=== PATIENT | male | born 1970 | race Caucasian/White ===

== ENCOUNTER 2018-09-25 15:04 | Inpatient (IN) | payer BC ==
[~2018-09-25] VITALS: Ht 188 cm; Wt 108.4 kg
[2018-09-25 15:11] VITALS: Ht 188 cm; Wt 108.4 kg
--- NOTE | 2018-09-25 17:49 | NUR ---
PT BIB SELF, PLACED ON FULL CM, INSTRUCTED TO PROVIDE CLEAN CATCH URINE SPECIMEN VERBALIZED UNDERSTANDING. NAD NOTED, SPEECH IS CLEAR, CALL LIGHT WITHIN REACH.
--- NOTE | 2018-09-25 19:00 | NUR ---
PATIENT AAOX4- PRESENTS TO THE ED WITH C/0 ABDOMINAL PAIN X 5 DAYS. PATIENT STATES HE HAS BEEN CONSTIPATED BUT TODAY HAD EPISODES OF WATERY STOOLS. PATIENT BREATHING IS EVEN AND UNLABORED, ABD SOFT, NON DISTENDED, NON TENDER. BS X 4 QUADS. NO OTHER S/S OF DISTRESS NOTED. PLACED ON ALL MONITORS FOR FURTHER OBSERVATON.
[2018-09-25 19:07] LABS: CALCIUM 8.7 mg/dL (8.5-10.1); CARBON DIOXIDE 29.6 mmol/L (21-32); CHLORIDE SERUM 99 mmol/L (98-107); CREATININE SERUM 1.2 mg/dL (0.7-1.3); GFR1 > 60 mL/min; GLUCOSE SERUM 96 mg/dL (74-106); POTASSIUM SERUM 4.2 mmol/L (3.5-5.1); SODIUM SERUM 135 mmol/L (136-145)
[2018-09-25 19:09] LABS: BASOPHIL % 0.2 % (0-2); PLATELET COUNT 248 x10^3mcL (130-400); RED CELL DISTRIBUTION WIDTH 12.8 % (11.5-14.5)
[2018-09-25 19:11] LABS: ALBUMIN 3.4 g/dL (3.4-5.0); ALKALINE PHOSPHATASE 151 U/L (46-116); ALT/SGPT 69 U/L (16-63); AST/SGOT 35 U/L (15-37); BILIRUBIN TOTAL 0.8 mg/dL (0.20-1.00); CHOLESTEROL 136 mg/dL (<200); CHOLESTEROL/HDL RATIO 3.5; HDL CHOLESTEROL 39 mg/dL (40-60); LIPASE 242 IU/L (73-393); TOTAL PROTEIN, SERUM 7.4 g/dL (6.4-8.2); TRIGLYCERIDES 81 mg/dL (<150)
[2018-09-25 19:26] LABS: T3 TOTAL 1.07 ng/mL
[2018-09-25 19:31] LABS: FREE T4 1.46 ng/dL (0.76-1.46); FREE THYROXINE INDEX 3.3 ug/dL (1.4-4.5); T4(THYROXINE) 9.3 ug/dL (4.7-13.3)
--- NOTE | 2018-09-25 19:55 | NUR ---
PATIENT IN BATHROOM PROVIDING URINE.
[2018-09-25 20:08] LABS: microscopic required? YES; urine erythrocyte NEGATIVE (NEGATIVE)
--- NOTE | 2018-09-25 20:31 | NUR ---
PATIENT LYING ON GURNEY- BREATHING EVEN AND UNLABORED. NO S/S OF DISTRESS NOTED. WILL CONTINUE TO MONITOR.
--- NOTE | 2018-09-25 20:47 | NUR ---
PATIENT TAKEN TO CT- BREATHING EVEN AND UNLABORED PROVIDED BLANKET PER PT REQUEST. WILL CONTINUE TO MONITOR UPON PATIENTS RETURN.
--- NOTE | 2018-09-25 21:22 | NUR ---
PATIENT BACK FROM CT- PLACED BACK ON ALL MONITORS. BREATHING EVEN AND UNLABORED. NO S/S OF DISTRESS NOTED. PATIENT VOICES NO NEEDS AT THIS TIME. GURNEY PLACED IN LOW POSITION, SIDE RAILS UP FOR SAFETY.
--- NOTE | 2018-09-26 00:19 | NUR ---
PATIENT PLACED ON LOW INTERMITTENT SUCTION PER DR. MO. WILL CONTINUE TO MONITOR.
--- NOTE | 2018-09-26 01:09 | NUR ---
PROVIDED REPORT TO ELLIOT KAY- ADVISED OF DISCREPANCY OF ADMITTING MD PUTTING TERRYCO ON PATIENT'S MAR- PATIENT IS ALLERGIC TO MORPHINE. RN AWARE. RAHUL GIVEN REPORT FOR CONTINUED CARE OF PATIENT.
[2018-09-26 01:26] LABS: MAGNESIUM 2.2 mg/dL (1.8-2.4); PHOSPHOROUS 4.2 mg/dL (2.5-4.9)
--- NOTE | 2018-09-26 01:30 | NUR ---
RECEIVED PT IN BED FROM ED VIA WHEELCHAIR ACCOMPANIED BY A NURSE.LUNG SOUND CTA. BREATHING EVEN AND UNLABORED. C/O ABDOMINAL PAIN 01/02. WILL MEDICATE ORDERED.PT HAS NGT WITH LOW INTERMITTENT SUCTION.SKIN ARE INTACT.AMBULATORY.IV SITE PATENT AND INTACT. BED IN LOWEST POSITION,CALL LIGHT WITHIN REACH. WILL CONTINUE TO MONITOR.
--- NOTE | 2018-09-26 01:51 | NUR ---
PT C/O ABDOMINAL PAIN 01/02. MEDICATED MORPHINE 2MG IV ORDERED. WILL CONTINUE TO MONITOR.
[2018-09-26 02:09] VITALS: BP 137/89
--- NOTE | 2018-09-26 05:13 | NUR ---
PT REMAINED ASLEEP.NO DISTRESS NOTED. NO S/S OF PAIN. WILL CONTINUE TO MONITOR.
[2018-09-26 06:09] VITALS: BP 105/61
--- NOTE | 2018-09-26 07:32 | NUR ---
CARE ENDORSED TO DAY NURSE
--- NOTE | 2018-09-26 08:00 | NUR ---
OX4. NO SOB AT RA. DENEIS PAIN THAT REQUIRE PAIN MEDS; NPO WITH VERBAL UNDERSTANDING; NGT TO LIS PATENT AND SECURED; NO DRAINAGE NOTED; IVF NSS AT 100 ML/HR INFUSING; RAC SITE PATENT AND WITHOUT INFILTRATION. WILL CONTINUE TO MONITOR STATUS.
[2018-09-26 09:23] VITALS: BP 112/69
--- NOTE | 2018-09-26 13:00 | NUR ---
PT OFFERED PAIN MED IF NEEDED BUT DENIES
[2018-09-26 17:47] VITALS: BP 128/65
--- NOTE | 2018-09-26 18:43 | NUR ---
NO RESULT FOR THE SMALL BOWEL SERIES OF THIS TIME. STILL WAITING FOR DR. CROFT FOR THE CONSULT; NGT DRAINAGE IS 275 ML, YELLOWISH COLOR ON THE TUBE; NO NEW ACUTE CHANGES IN STATUS. WILL CONTINUE TO MONITOR STATUS.
--- NOTE | 2018-09-26 19:05 | NUR ---
RECEIVED PT LAYING IN BED, NO ACUTE DISTRESS OBSERVED. DENIES PAIN OR DISCOMFORT. NGT TO R NARE, CONNECTED TO LIS, YELLOW OUTPUT NOTED. ABD ROUND AND SOFT WITH ACTIVE BOWEL SOUNDS, DENIES N/V, LAST BM 2 DAYS AGO, WATERY DIARRHEA. DENIES ABD PAIN AT THIS TIME. AA/OX4, ABLE TO MAKE NEEDS KNOWN. MED-SURG, NO TELE, NO CP. PULSES PRESENT AND EQUAL THROUGHOUT, NO EDEMA. BREATHING ON RA, EVEN AND UNLABORED, LUNGS CTA, NO SOB OR DYSPNEA OBSERVED. FREELY VOIDS URINE WITH URINAL AT BEDSIDE AND WITHIN REACH. AMBULATORY AND ABLE TO REPOSITION SELF IN BED. SKIN CDI. IV TO RAC IN PLACE, DRY, PATENT, INTACT, AND INFUSING IVF WELL, NO PAIN, REDNESS OR SWELLING NOTED. COMFORT AND SAFETY MEASURES IN PLACE. ALL NEEDS ASSESSED AND ATTENDED TO. CALL LIGHT WITHIN REACH. WILL CONTINUE TO MONITOR
--- NOTE | 2018-09-26 19:05 | NUR ---
RECEIVED PT LAYING IN BED, NO ACUTE DISTRESS OBSERVED. DENIES PAIN OR DISCOMFORT. NGT TO L NARE, CONNECTED TO LIS, YELLOW OUTPUT NOTED. ABD ROUND AND SOFT WITH ACTIVE BOWEL SOUNDS, DENIES N/V, LAST BM 2 DAYS AGO, WATERY DIARRHEA. DENIES ABD PAIN AT THIS TIME. AA/OX4, ABLE TO MAKE NEEDS KNOWN. MED-SURG, NO TELE, NO CP. PULSES PRESENT AND EQUAL THROUGHOUT, NO EDEMA. BREATHING ON RA, EVEN AND UNLABORED, LUNGS CTA, NO SOB OR DYSPNEA OBSERVED. FREELY VOIDS URINE WITH URINAL AT BEDSIDE AND WITHIN REACH. AMBULATORY AND ABLE TO REPOSITION SELF IN BED. SKIN CDI. IV TO RAC IN PLACE, DRY, PATENT, INTACT, AND INFUSING IVF WELL, NO PAIN, REDNESS OR SWELLING NOTED. COMFORT AND SAFETY MEASURES IN PLACE. ALL NEEDS ASSESSED AND ATTENDED TO. CALL LIGHT WITHIN REACH. WILL CONTINUE TO MONITOR
--- NOTE | 2018-09-26 19:15 | NUR ---
RECEIVED PT LAYING IN BED, NO ACUTE DISTRESS OBSERVED. DENIES PAIN OR DISCOMFORT. AA/OX3, SPEECH SLOW AND APPROPRIATE, ABLE TO MAKE NEEDS KNOWN, HX OF MR. MED-SURG, NO TELE, NO CP. PULSES PRESENT AND EQUAL THROUGHOUT, NO EDEMA. BREATHING ON RA, EVEN AND UNLABORED, LUNGS CTA, NO SOB OR DYSPNEA OBSERVED. ABD ROUND AND SOFT WITH ACTIVE BOWEL SOUNDS, NO N/V/D. VOIDS URINE, C/O DYSURINA, UA (+) UTI, YELLOW/ORANGE URINE OUTPUT NOTED, URINAL AT BEDSIDE AND WITHIN REACH. AMBULATORY AND ABLE TO REPOSITION SELF IN BED. SKIN CDI. IV TO LAC IN PLACE, DRY, PATENT, INTACT, AND INFUSING IVF WELL, NO PAIN, REDNESS OR SWELLING NOTED. COMFORT AND SAFETY MEASURES IN PLACE. ALL NEEDS ASSESSED AND ATTENDED TO. CALL LIGHT WITHIN REACH. WILL CONTINUE TO MONITOR
[2018-09-26 20:28] LABS: CALCIUM 8.2 mg/dL (8.5-10.1); CARBON DIOXIDE 26.3 mmol/L (21-32); CHLORIDE SERUM 103 mmol/L (98-107); CREATININE SERUM 0.9 mg/dL (0.7-1.3); GFR1 > 60 mL/min; GLUCOSE SERUM 77 mg/dL (74-106); POTASSIUM SERUM 4.5 mmol/L (3.5-5.1); SODIUM SERUM 140 mmol/L (136-145)
[2018-09-26 20:31] LABS: BASOPHIL % 0.3 % (0-2); PLATELET COUNT 237 x10^3mcL (130-400); RED CELL DISTRIBUTION WIDTH 12.3 % (11.5-14.5)
--- NOTE | 2018-09-26 20:44 | NUR ---
SPOKE WITH SONU WITH DR. CURRAN'S OFFICE. LEFT MESSAGE TO HAVE HIM CALL BACK IN ORDER TO RELAY SMALL BOWEL FOLLOW THROUGH RESULTS. WILL ANTICIPATE CALL BACK
[2018-09-26 20:58] VITALS: BP 125/72
--- NOTE | 2018-09-26 21:08 | NUR ---
SPOKE WITH DR. CURRAN AND RELAYED RESULTS FOR SMALL BOWEL FOLLOW THROUGH. HE STATES HE WILL BE IN TO SEE PT MAURICE. WILL ANTICIPATE
--- NOTE | 2018-09-26 21:36 | NUR ---
DR. CURRAN IN TO SEE PT AT THIS TIME
[2018-09-27 05:00] VITALS: BP 116/63
--- NOTE | 2018-09-27 06:01 | NUR ---
975 ML YELLOW OUTPUT NOTED TO NGT DURING SHIFT. NGT TO L NARE REMAINS CONNECTED TO LIS ORDERED. NO SIGNIFICANT CHANGES TO REPORT, PT COMPLIED WITH NURSING CARE THROUGHOUT THE SHIFT WITH NO ACUTE EVENTS OVERNIGHT. NO ACUTE DISTRESS NOTED AT THIS TIME, PT LAYING IN BED, BREATHING EVEN AND UNLABORED, AROUSABLE TO VERBAL STIMULI. COMFORT AND SAFETY MEASURES MAINTAINED. ALL NEEDS ASSESSED AND ATTENDED TO. CALL LIGHT WITHIN REACH. WILL CONTINUE TO MONITOR AND ENDORSE CARE TO DAY SHIFT NURSE
[2018-09-27 06:09] LABS: BASOPHIL % 0.4 % (0-2); PLATELET COUNT 218 x10^3mcL (130-400); RED CELL DISTRIBUTION WIDTH 12.4 % (11.5-14.5)
--- NOTE | 2018-09-27 06:13 | NUR ---
PT DOWN FOR SCHEDULED KUB. IV TO RAC S/L, NGT DISCONNECTED AT THIS TIME. NO ACUTE DISTRESS OBSERVED, PT VIA WHEELCHAIR.
[2018-09-27 06:32] LABS: CALCIUM 8.5 mg/dL (8.5-10.1); CARBON DIOXIDE 25.9 mmol/L (21-32); CHLORIDE SERUM 104 mmol/L (98-107); CREATININE SERUM 0.9 mg/dL (0.7-1.3); GFR1 > 60 mL/min; GLUCOSE SERUM 66 mg/dL (74-106); POTASSIUM SERUM 5.4 mmol/L (3.5-5.1); SODIUM SERUM 139 mmol/L (136-145)
--- NOTE | 2018-09-27 07:30 | NUR ---
RECEIVED PT RESTING IN BED. AAOX4. RESP EVEN AND UNLABORED ON RA. NGT TO R NARE ON LOW INTERMITTENT SUCTION, WITH YELLOW-GREEN OUTPUT. BOWEL SOUNDS ACTIVE, SOFT, ROUND. NPO. NO C/O PAIN AT THIS TIME. IVF INFUSING, NO REDNESS OR SWELLING. HOB ELEVATED. BED IN LOW POSITION, CALL LIGHT WITHIN REACH. WILL CONTINUE TO MONITOR.
[2018-09-27 07:53] VITALS: BP 118/72
--- NOTE | 2018-09-27 11:21 | NUR ---
JOE PRODUCT MARKETING ENGINEER AWARE OF POTASSIUM 5.4. PT ASYMPTOMATIC. NO NEW ORDERS. WILL CONTINUE TO MONITOR.
[2018-09-27 12:17] VITALS: BP 110/62
--- NOTE | 2018-09-27 13:20 | NUR ---
PT RESTING IN BED. NO ACUTE DISTRESS. NGT TO R SHERLYN ON LOW INTERMITTENT SUCTION. DENIES PAIN. NPO. PT GIVEN ICE CHIPS REQUESTED. IVF INFUSING, NO REDNESS OR SWELLING. CALL LIGHT WITHIN REACH. WILL CONTINUE TO MONITOR.
[2018-09-27 16:47] VITALS: BP 126/67
--- NOTE | 2018-09-27 17:33 | NUR ---
PT GIVEN NEW GOWN AND CLEANSING WIPES. BED LINEN CHANGED. PT DENIES PAIN AT THIS TIME. NGT TO LOW INTERMITTENT SUCTION, YELLOW-GREEN OUTPUT. IVF INFUSING, NO REDNESS OR SWELLING. CALL LIGHT WITHIN REACH. WILL CONTINUE TO MONITOR.
--- NOTE | 2018-09-27 18:17 | NUR ---
PT RESTING IN BED. NO ACUTE DISTRESS. AAOX4. NGT TO R NARE ON LOW INTERMITTENT SUCTION. NO C/O PAIN. BOWEL SOUNDS ACTIVE, SOFT, ROUND. PT REPORTS PASSING GAS. IVF INFUSING, NO REDNESS OR SWELLING. BED IN LOW POSITION, CALL LIGHT WITHIN REACH. WILL ENDORSE TO ONCOMING SHIFT.
--- NOTE | 2018-09-27 19:11 | NUR ---
SPOKE WITH DR. CURRAN OVER THE PHONE REGARDING PT'S XR ABD KUB RESULTS AND PT'S NGT OUTPUT OF 625 ML. RECEIVED TELEPHONE ORDERS TO CLAMP NG TUBE AND TO REPEAT XR ABD KUB TEST ON 09/28/18 AT 0500, ORDERS READ BACK. ORDERS CARRIED OUT. ENDORSED TO MADDY ZARATE FOR CONTINUITY OF CARE.
--- NOTE | 2018-09-27 19:15 | NUR ---
RECEIVED PT LAYING IN BED, NO ACUTE DISTRESS OBSERVED. DENIES PAIN OR DISCOMFORT. NGT TO R NARE, CLAMPED AT THIS TIME PER ORDERS. ABD ROUND AND SOFT WITH ACTIVE BOWEL SOUNDS, DENIES N/V, LAST BM 09/24/18, WATERY DIARRHEA. DENIES ABD PAIN AT THIS TIME. AA/OX4, ABLE TO MAKE NEEDS KNOWN. MED-SURG, NO TELE, NO CP. PULSES PRESENT AND EQUAL THROUGHOUT, NO EDEMA. BREATHING ON RA, EVEN AND UNLABORED, LUNGS CTA, NO SOB OR DYSPNEA OBSERVED. FREELY VOIDS URINE WITH URINAL AT BEDSIDE AND WITHIN REACH. AMBULATORY AND ABLE TO REPOSITION SELF IN BED. SKIN CDI. IV TO RAC IN PLACE, DRY, PATENT, INTACT, AND INFUSING IVF WELL, NO PAIN, REDNESS OR SWELLING NOTED. COMFORT AND SAFETY MEASURES IN PLACE. ALL NEEDS ASSESSED AND ATTENDED TO. CALL LIGHT WITHIN REACH. WILL CONTINUE TO MONITOR
[2018-09-27 20:51] VITALS: BP 132/72
[2018-09-28 05:30] VITALS: BP 118/76
--- NOTE | 2018-09-28 05:35 | NUR ---
PT C/O HEADACHE AND REQUESTED PAIN MED. MEDICATED WITH PRN TYLENOL PER EMAR
--- NOTE | 2018-09-28 06:17 | NUR ---
NGT TO R NARE REMAINS CLAMPED ORDERED. NO SIGNIFICANT CHANGES TO REPORT, PT COMPLIED WITH NURSING CARE THROUGHOUT THE SHIFT WITH NO ACUTE EVENTS OVERNIGHT. NO ACUTE DISTRESS NOTED AT THIS TIME, PT LAYING IN BED, BREATHING EVEN AND UNLABORED, AROUSABLE TO VERBAL STIMULI. COMFORT AND SAFETY MEASURES MAINTAINED. ALL NEEDS ASSESSED AND ATTENDED TO. CALL LIGHT WITHIN REACH. WILL CONTINUE TO MONITOR AND ENDORSE CARE TO DAY SHIFT NURSE
[2018-09-28 06:43] LABS: BASOPHIL % 0.4 % (0-2); PLATELET COUNT 250 x10^3mcL (130-400); RED CELL DISTRIBUTION WIDTH 12.2 % (11.5-14.5)
[2018-09-28 06:46] LABS: CALCIUM 8.6 mg/dL (8.5-10.1); CARBON DIOXIDE 24.1 mmol/L (21-32); CHLORIDE SERUM 101 mmol/L (98-107); CREATININE SERUM 0.9 mg/dL (0.7-1.3); GFR1 > 60 mL/min; GLUCOSE SERUM 63 mg/dL (74-106); POTASSIUM SERUM 4.2 mmol/L (3.5-5.1); SODIUM SERUM 139 mmol/L (136-145)
--- NOTE | 2018-09-28 07:30 | NUR ---
PATIENT RESTING IN BED, NO SOB NOTED. LUNG SOUNDS CTA, ON ROOM AIR. NO EDEMA NOTED. NGT TO RIGHT NARE NOTED, NGT CLAMPED AT THIS TIME. PATIENT DENIES PAIN AT THIS TIME. NS IV INFUSING TO RAC, IV SITE CDI, NO S/S OF INFILTRATION. CALL LIGHT WITHIN REACH, BED IN LOW POSITION. WILL CONTINUE TO MONITOR FOR CHANGES.
[2018-09-28 08:48] VITALS: BP 120/71
--- NOTE | 2018-09-28 09:30 | NUR ---
PATIENT IS AMBULATING HALLWAYS, STEADY GAIT NOTED. NO ACUTE DISTRESS. WILL CONTINUE TO MONITOR FOR CHANGES.
--- NOTE | 2018-09-28 13:52 | NUR ---
Initial Nutrition Assessment- RAÚL MURRY HR Dx: small bowel obstruction PMHx: none PSHx: Hernia Repair (x4), right shoulder repair x4 Labs: (09/28) BG 63L Meds: NS, Zofran Diet: NPO (SBO) PO Intake: NPO Ht:187.96 cm (74") Wt: 108.4 kg (238#) BMI: 30.7 k/m2 (obesity) IBW: 190# (86kg) %IBW: 125 UBW: unable to access Age: 48/M Food Allergies: NKFA Skin: intact Lorenzo: 20 Edema: none GI: Last BM: 09/24, NGT, clamped Per H&P, pt is a 48 year old male with no PMH presents with mid-abdominal pain for 4 days. He describes the pain as constant, mixture of sharp and pressure, and non-radiating. He rates the pain as 10/10. He reports last bowel movement was a week ago. He took laxative 4 days ago and have been having diarrhea until a day ago. Patient admits to fever, nausea, and shortness of breath. Imaging: RAD/XR ABD: KUB (09/28) IMPRESSION: No significant change. Ileus versus partial small bowel obstruction in small bowel. RDN visit(09/28): Pt was awake and alert and said that he does not have any N/V at this time and is hungry. Pt asked as to why TF was not initiated even though he has an NG tube in place. Pt was informed that he is NPO and TF will be initiated after MD thinks it is appropriate. Problem with: N: no V: no D: no C: no Problems with: Chewing/Swallowing: no Current appetite: Good Recent wt change: none Vitamin/Supplement use: MVI Special diet at home: Regular Physical activity: unable to access Education: No diet education provided at this time since pt has SBO. Estimated Nutritional Needs Based on ideal body weight 86 kg Energy: 6056-1574 kcal/d (25-30 kcal/kg-maintenance) Protein: 69-86 g/d (0.8-1.0g/kg)-maintenance and preservation of lean body mass Fluid: 7606-8329 ml/d (1 ml/kcal-fluid balance) or per doctor Nutrition Diagnosis 1. Inadequate oral intake related to SBO as evidenced by NPO. Intervention 1. If SBO resolves, initiate Regular diet. 2. If SBO continues, consider PPN Dextrose 10%, AA 4.25% Monitor/Evaluate Goal: PO intake at least 75% of estimated needs Monitor: PO intake, Labs, GI function F/U in 2-3 days as high risk 09/30-10/01
--- NOTE | 2018-09-28 13:52 | NUR ---
1. If SBO resolves, initiate Regular diet. 2. If SBO continues, consider PPN Dextrose 10%, AA 4.25%
--- NOTE | 2018-09-28 15:12 | NUR ---
PATIENT RESTING IN BED, WATCHING TV. NO ACUTE DISTRESS NOTED. PATIENT DENIES PAIN. CALL LIGHT WITHIN REACH, BED IN LOW POSITION, WILL CONTINUE TO MONITOR FOR CHANGES.
--- NOTE | 2018-09-28 16:50 | NUR ---
DR CURRAN AT BEDSIDE SPOKE WITH PATIENT ABOUT POC. DR CURRAN GAVE VERBAL ORDER/ READBACK TO REMOVE NGT AND PLACE PATIENT ON CLEAR LIQUID DIET. PATIENT UNDERSTNADS TO REPORT ANY ABDOMINAL PAIN, DISTENTION, NAUSEA, VOMITING. PATIENT VERBALIZES UNDERSTANDING, PATIENT AWARE HE WILL STAY OVER NIGHT FOR OBSERVATION. WILL CARRY OUT ORDERS, CALL LIGHT WITHIN REACH, BED IN LOW POSITION. WILL CONTINUE TO MONITOR.
[2018-09-28 17:14] VITALS: BP 113/65
--- NOTE | 2018-09-28 17:15 | NUR ---
NGT TO RIGHT NARE REMOVED AT THIS TIME BY RN STUDENT. WILL FOLLOW UP WITH PATIENT. CALL LIGHT WITHIN REACH, BED IN LOW POSITION.
--- NOTE | 2018-09-28 18:30 | NUR ---
PAITENT IS STABLE AT THIS TIME, NO ACUTE CHANGES THROUGH OUT SHIFT. PATIENT TOLERATED CLEAR LIQUID DIET, PATIENT DENIES ABD PAIN/N/V. NS IV INFUSING TO RAC AT 100ML/HR, IV SITE CDI, NO S/S OF INFILTRATION. CALL LIGHT WITHIN REACH, BED IN LOW POSITON.
--- NOTE | 2018-09-28 19:20 | NUR ---
RECEIVED PT RESTING IN BED, NO ACUTE DISTRESS NOTED. AOX4, DENIES BIRCH/DIZZINESS. MEDSURG PT, DENIES CP. PULSES PALPABLE BILAT, DENIES NUMBNESS/TINGLING IN FEET. RESP EVEN AND UNLABORED ON RA, DENIES SOB. ABD SOFT, ROUND, DENIES ABD PAIN. PT S/P NG TUBE REMOVED TO RT NARES, PT STARTED ON CLEAR LIQUID DIET FOR DINNER, TOLERATED DINNER WELL. PT VOIDS FREELY W/O DYSURIA. AMBULATORY, SKIN INTACT. IV SITE TO RAC NS @ 100ML/HR. NO REDNESS, SWELLING OR PAIN NOTED. ALL COMFORT AND SAFETY MEASURES PROVIDED FOR, CALL LIGHT WITHIN REACH, BED IN LOWEST POSITION, WILL CONTINUE TO MONITOR.
[2018-09-28 20:52] VITALS: BP 117/63
--- NOTE | 2018-09-28 22:25 | NUR ---
PT USED CALL LIGHT TO REPORT PAIN TO BACK, 5/10; WILL MEDICATE PER ORDER.
--- NOTE | 2018-09-29 05:00 | NUR ---
PT RESTED IN INTERVALS DURING SHIFT, NO ACUTE CHANGES OCCURRING OVERNIGHT. PT DENIES N/V/D. PT HAS NOT HAD A BM DURING SHIFT. PT REMAINS AFEBRILE. ALL COMFORT AND SAFETY MEASURES PROVIDED FOR, CALL LIGHT WITHIN REACH, BED IN LOWEST POSITION, WILL CONTINUE TO MONITOR.
[2018-09-29 05:41] VITALS: BP 99/63
[2018-09-29 06:27] LABS: BASOPHIL % 0.3 % (0-2); PLATELET COUNT 248 x10^3mcL (130-400); RED CELL DISTRIBUTION WIDTH 12.1 % (11.5-14.5)
[2018-09-29 06:44] LABS: CALCIUM 8.6 mg/dL (8.5-10.1); CARBON DIOXIDE 27.8 mmol/L (21-32); CHLORIDE SERUM 103 mmol/L (98-107); GFR1 > 60 mL/min; GLUCOSE SERUM 76 mg/dL (74-106); POTASSIUM SERUM 4.9 mmol/L (3.5-5.1); SODIUM SERUM 140 mmol/L (136-145)
--- NOTE | 2018-09-29 07:20 | NUR ---
RECEIVED PT. IN BED A/A/O X4. NO SOB, NO N/V NOTED. PT. DENIES ANY PAIN AT THIS TIME. NS RUNNING AT 100 CC/HR VIA IV SITE AT R AC. BED IN LOW POS., CALL LIGHT WITHIN REACH. SIDE RAILS UP X3.
--- NOTE | 2018-09-29 07:36 | NUR ---
ENDORSED ALL CARE TO DAYSHIFT NURSE, ALL QUESTIONS AND CONCERNS ADDRESSED, ALL COMFORT AND SAFETY MEASURES PROVIDED FOR, CALL LIGHT WITHIN REACH. BED IN LOWEST POSITION.
--- NOTE | 2018-09-29 08:00 | NUR ---
AARON GOODEN AT BEDSIDE. COOK BOX FILLER MADE AWARE OF PT. HAVING MULTIPLE SCATTERED,SMALL RAISED, RED, CLOSED SKIN LESIONS TO PT.'S BACK. COOK BOX FILLER STATED SHE WILL PLACE AN ORDER FOR A CREAM TO BE APPLIED TO PT.'S BACK. PT. STATED THAT THE LESIONS WERE ITCHY. COOK BOX FILLER ALSO MADE AWARE OF THE ABOVE. PHOTOGRAPH OF LESIONS TO PT.'S BACK TAKEN.
[2018-09-29 09:18] VITALS: BP 125/72
[2018-09-29] MEDS ORDERED: REG5 PO (10:15)
[2018-09-29 13:20] VITALS: BP 125/72
--- NOTE | 2018-09-29 13:30 | NUR ---
PT. IS TO BE DISCHARGED AFTER LUNCH. PT. STATED HIS WILL COME IN AROUND 5 PM TO TAKE HIM HOME TODAY.
--- NOTE | 2018-09-29 17:30 | NUR ---
D/C HOME INSTRUCTIONS GIVEN TO PT. WHO VERBALIZED UNDERSTANDING OF INSTRUCTIONS. IV H/L TO R AC REMOVED. PRESCRIPTION GIVEN. PT. STATED HIS WILL COME AROUND 6 PM TO TAKE HIM HOME.
--- NOTE | 2018-09-29 18:00 | NUR ---
PT. IS BEING DISCHARGED IN STABLE CONDITION VIA WHEELCHAIR. ALL BELONGINGS SENT HOME WITH PT. UPON DISCHARGE.
== END 2018-09-29 18:00 | disposition home or self-care (01) | DRG 388 ==
LOC: ED 15:04 → MU 09-26 00:39
PROVIDERS: Specialist; ADMIT Internal Medicine
PROC: 0D9670Z Drainage of Stomach with Drainage Device, Via Natural or Artificial Opening (ICD-10-PCS; principal; 2018-09-26)
DX: K56.600 Partial intestinal obstruction, unspecified as to cause (principal); N17.0 Acute kidney failure with tubular necrosis; K65.9 Peritonitis, unspecified; E44.1 Mild protein-calorie malnutrition; Z68.30 Body mass index [BMI] 30.0-30.9, adult; Z88.8 Allergy status to other drugs, medicaments and biological substances
CPT/HCPCS: 83880; 84439; A9698; J0694; J2270; J7030; J8597; Q0092; Q9967